=== PATIENT | male | born 1995 | race Two or more races ===

== ENCOUNTER 2020-04-20 00:15 | Emergency (ER) | payer SELFPAY ==
[~2020-04-20] VITALS: Ht 188 cm; Wt 86.2 kg
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
[2020-04-20] MEDS ORDERED: MORPHINE SULFATE INJ 2 MG/ML DISP.SYRIN IV ONE (01:00)
[2020-04-20] MEDS ORDERED: IV NS 0.9% 500 ML BAG IV ONE (01:00)
[2020-04-20] MEDS ORDERED: ONDANSETRON HCL/PF 4 MG/2 ML VIAL IVP ONE (01:00)
[2020-04-20] MEDS ORDERED: HYDROCODONE/APAP 10/325MG TABLET ONE (01:01)
[2020-04-20] MEDS ORDERED: ONDANSETRON 4 MG TAB.RAPDIS ONE (01:02)
--- NOTE | 2020-04-20 01:23 | NUR ---
back from ct
[2020-04-20] MEDS: ONDANSETRON 4 MG TAB.RAPDIS SL ONE (01:27)
[2020-04-20] MEDS: HYDROCODONE/APAP 10/325MG TABLET PO ONE (01:27)
[2020-04-20] MEDS ORDERED: HYDR-3976 PO (02:02)
--- NOTE | 2020-04-20 02:26 | NUR ---
Patient does not wish to proceed with medical care recommended by Dr. Maldonado regarding CT with contrast and blood test. Patient given information related to possible complications, up to and including , which could occur as a result of refusing the ct W/ contrast. Patient verbalizes understanding of risks involved. Patient has signed AMA form. Patient discharged to home. Rx and Written and verbal after care instructions given. Patient verbalizes understanding of instruction. pt walked out in steady gaits and was picked up by his .
[2020-04-20 02:30] VITALS: BP 139/85
== END 2020-04-20 02:30 | disposition left against medical advice (07) ==
LOC: ER 00:19
DX: S13.4XXA Sprain of ligaments of cervical spine, initial encounter (principal); S00.83XA Contusion of other part of head, initial encounter; S20.212A Contusion of left front wall of thorax, initial encounter; S70.02XA Contusion of left hip, initial encounter; S50.811A Abrasion of right forearm, initial encounter; S09.8XXA Other specified injuries of head, initial encounter; M25.512 Pain in left shoulder; R10.12 Left upper quadrant pain; V29.49XA Motorcycle driver injured in collision with other motor vehicles in traffic accident, initial encounter; Y93.89 Activity, other specified; Y92.89 Other specified places as the place of occurrence of the external cause; Y99.8 Other external cause status
CPT/HCPCS: 70450; 70486; 71045; 71250; 72125; 73030; 73503; 74176; 99285; L0172; Q0162; 73502